=== PATIENT | female | born 1975 | race Hispanic/Latino ===

== ENCOUNTER 2017-01-22 12:30 | Day surgery (SDC) | payer MEDICAID ==
[2017-01-21 08:25] VITALS: BMI 24.4
[2017-01-22 13:09] LABS: BASO # 0.01 K/mm3 (0.0-2.0); BASO % 0.2 % (0.0-3.0); EOS # 0.1 (0.0-0.7); EOS % 2.2 % (1.5-5.0); GRAN # 2.71 (1.4-6.5); GRAN % 54.8 % (50.0-68.0); HEMATOCRIT 35.2 % (36.0-48.0); LYMPH # 1.9 (1.2-3.4); LYMPH % 37.9 % (22.0-35.0); MEAN CELL VOLUME 85.2 fl (80.0-105.0); MEAN CORPUSCULAR HGB CONC 36.4 g/dl (31.0-37.0); MEAN PLATELET VOLUME 8.9 fl (7.0-11.0); MONO # 0.2 (0.1-0.6); MONO % 4.9 % (1.0-6.0); RED CELL DISTRIBUTION WIDTH 12.2 % (11.5-14.5); WHITE BLOOD COUNT 4.9 10^3/ul (4.5-11.0)
[2017-01-22 13:15] LABS: CALCIUM 10.3 mg/dL (8.4-10.5); POTASSIUM 3.8 mmol/L (3.6-5.0)
[2017-01-22 13:21] LABS: INR 1.04 (0.93-1.08); PARTIAL THROMBOPLASTIN TIME 29.7 Seconds (25.1-36.5)
[2017-01-22] MEDS ORDERED: Midazolam 2 MG/2 ML VIAL ONE (14:23)
[2017-01-22] MEDS ORDERED: Oxycodone/Acetaminophen 5/325 mg Tab PO PRN (15:26)
[2017-01-22] MEDS ORDERED: Sodium Chloride 0.45% 1,000 ML IV SCH (15:30)
--- NOTE | 2017-01-22 16:48 | RAD ---
HISTORY: rt liver bx. r/o PTX COMPARISON: No prior. FINDINGS: LUNGS: No active pulmonary disease. PLEURA: No significant pleural effusion identified, no pneumothorax apparent. CARDIOVASCULAR: Normal. OSSEOUS STRUCTURES: No radiographic findings to suggest acute or significant cardiovascular disease. MacrovascularNo significant abnormalities. VISUALIZED UPPER ABDOMEN: Free air under both diaphragms. OTHER FINDINGS: None. IMPRESSION: Status post liver biopsy, free air under both diaphragms identified.
[2017-01-22 18:52] VITALS: RESP 20
--- NOTE | 2017-01-22 20:38 | CT ---
PROCEDURE: CT guided liver biopsy. HISTORY: Ovarian carcinoma. 4 cm peripheral calcified hepatic mass. Evaluate for recurrent disease PHYSICIAN(S): Shadi Ronquillo MD. TECHNIQUE: The relative risks and indications of the procedure were explained to the patient and consent obtained. The patient was placed left decubitus position on the CT scanner and preliminary images through the upper abdomen obtained. Conscious sedation and monitoring were provided throughout the procedure by a nurse. There is an oval 4 cm calcified mass contiguous with the superior aspect the right lobe of the liver.. A right lateral approach was selected and the area prepped and draped in the usual sterile fashion. 1% Xylocaine was used to anesthetize the skin and soft tissues. A 17-gauge guiding needle was advanced into the 4 cm. Hepatic mass. Its position was confirmed with CT. Using coaxial technique, multiple core biopsies were obtained. The postprocedure images show no evidence of significant hemorrhage. Interestingly, there is a small to moderate amount of pneumoperitoneum. The patient was stable without significant pain. She will be observed. IMPRESSION: 1. CT-guided liver biopsy as described above.
[2017-01-23 07:41] LABS: HEMATOCRIT 33.2 % (36.0-48.0); MEAN CELL VOLUME 85.6 fl (80.0-105.0); MEAN CORPUSCULAR HEMOGLOBIN 29.9 pg (25.0-35.0); MEAN CORPUSCULAR HGB CONC 34.9 g/dl (31.0-37.0); MEAN PLATELET VOLUME 9.2 fl (7.0-11.0); RED CELL DISTRIBUTION WIDTH 12.4 % (11.5-14.5); WHITE BLOOD COUNT 3.9 10^3/ul (4.5-11.0)
[2017-01-23 08:02] LABS: BLOOD UREA NITROGEN 25 mg/dL (7-21); CALCIUM 9.8 mg/dL (8.4-10.5); CARBON DIOXIDE 24 mmol/L (21-33); CHLORIDE 107 mmol/L (98-107); GFR AFRICAN-AMERICAN > 60; GLUCOSE,RANDOM 97 mg/dL (70-110); POTASSIUM 3.8 mmol/L (3.6-5.0); SODIUM 140 mmol/L (132-148)
[2017-01-23 08:08] VITALS: BP 95/62; PULSE 73; TEMP 97.8; O2SAT 99
--- NOTE | 2017-01-23 11:24 | RAD ---
HISTORY: fu pneumoperitoneum COMPARISON: 01/22/2017 TECHNIQUE: Chest PA and lateral FINDINGS: LUNGS: No active pulmonary disease. PLEURA: No significant pleural effusion identified. No pneumothorax apparent. CARDIOVASCULAR: Normal. OSSEOUS STRUCTURES: No significant abnormalities. VISUALIZED UPPER ABDOMEN: Pneumoperitoneum is again demonstrated and unchanged. OTHER FINDINGS: None. IMPRESSION: No change in pneumoperitoneum
== END 2017-01-23 13:22 | disposition home or self-care (01) ==
LOC: SDS 12:30 → 3RNO 18:30 → SDS 01-23 13:22
PROVIDERS: ATTEND Radiology Vascular & Interventional Radiology
DX: C78.7 Secondary malignant neoplasm of liver and intrahepatic bile duct (principal); C56.9 Malignant neoplasm of unspecified ovary
CPT/HCPCS: 36415 ×2; 47000; 71010; 71020; 77012; 80048 ×2; 85025; 85027; 85610; 85730; 88307; J2250; J2405; J3010; J7030

== ENCOUNTER 2017-05-21 12:45 | Day surgery (SDC) | payer OTHER, MEDICAID ==
[2017-05-18 12:41] VITALS: BMI 22.7
[2017-05-21 13:14] LABS: BASO # 0.04 K/mm3 (0.0-2.0); BASO % 0.6 % (0.0-3.0); EOS # 0.2 (0.0-0.7); EOS % 2.2 % (1.5-5.0); GRAN # 3.23 (1.4-6.5); GRAN % 44.8 % (50.0-68.0); HEMOGLOBIN 12.5 g/dL (12.0-16.0); LYMPH # 3.4 (1.2-3.4); LYMPH % 46.6 % (22.0-35.0); MEAN CELL VOLUME 85.3 fl (80.0-105.0); MEAN CORPUSCULAR HEMOGLOBIN 29.2 pg (25.0-35.0); MEAN CORPUSCULAR HGB CONC 34.2 g/dl (31.0-37.0); MEAN PLATELET VOLUME 8.9 fl (7.0-11.0); MONO # 0.4 (0.1-0.6); MONO % 5.8 % (1.0-6.0); RBC 4.28 10^6/uL (3.5-6.1); RED CELL DISTRIBUTION WIDTH 15.5 % (11.5-14.5); WHITE BLOOD COUNT 7.2 10^3/ul (4.5-11.0)
[2017-05-21 13:21] LABS: CALCIUM 10.7 mg/dL (8.4-10.5); INR 1.06 (0.93-1.08); PROTHROMBIN TIME 12.2 SECONDS (9.4-12.5)
[2017-05-21 13:22] LABS: PARTIAL THROMBOPLASTIN TIME 29.4 Seconds (25.1-36.5)
[2017-05-21] MEDS ORDERED: Midazolam 2 MG/2 ML VIAL ONE (15:32)
[2017-05-21] MEDS ORDERED: Lidocaine 1% Inj (20ml) ONE (15:33)
[2017-05-21] MEDS ORDERED: Oxycodone/Acetaminophen 5/325 mg Tab PO PRN (16:13)
[2017-05-21] MEDS ORDERED: Sodium Chloride 0.45% 1,000 ML IV SCH (16:15)
--- NOTE | 2017-05-21 17:04 | CT ---
PROCEDURE: CT guided liver biopsy. HISTORY: Metastatic germ cell carcinoma. New liver lesions. Evaluate for recurrence. PHYSICIAN(S): Shadi Ronquillo MD. TECHNIQUE: The relative risks and indications of the procedure were explained to the patient and consent obtained. The patient was placed left decubitus position on the CT scanner and preliminary images through the inferior liver obtained. Conscious sedation and monitoring were provided throughout the procedure by a nurse. There is a lobulated 2 cm low-attenuation mass at the tip of the liver. A right lateral approach was selected and the area prepped and draped in the usual sterile fashion. 1% Xylocaine was used to anesthetize the skin and soft tissues. A 17-gauge guiding needle was advanced into the 2 cm inferior right liver lesion. Its position was confirmed with CT. Using coaxial technique, multiple core biopsies were obtained. The postprocedure images show no evidence of significant hemorrhage. IMPRESSION: 1. CT-guided liver biopsy as described above.
[2017-05-21 17:09] VITALS: TEMP 98
[2017-05-21 17:57] VITALS: BP 108/54; PULSE 71; RESP 20; O2SAT 100
== END 2017-05-21 18:00 | disposition home or self-care (01) ==
LOC: SDS 12:45
PROVIDERS: ATTEND Radiology Vascular & Interventional Radiology
DX: K74.0 Hepatic fibrosis (principal); R16.0 Hepatomegaly, not elsewhere classified
CPT/HCPCS: 36415; 47000; 77012; 80048; 85025; 85610; 85730; 88307; 99152; J2250; J2405; J3010; J7030

== ENCOUNTER 2018-04-13 12:16 | Emergency (ER) | payer OTHER, MEDICAID ==
[2018-04-13 12:16] VITALS: BMI 25.1
--- NOTE | 2018-04-13 13:34 | ED PDOC ---
Arrival/HPI - General Historian: Patient - History of Present Illness Narrative History of Present Illness (Text): 04/13/18 13:24 42F w/ a PMH of R sided ovarian CA s/p Rsided oophrectomy, salpingectomy, hysterectomy presenting w/ complaints of RLQ pain. Patient reported that pain has been worsening over the past 3 days; presented complaints to her heme/onc Dr. Khan who suggested patient go to ED. Patient reported that pain is a sharp sensation which does not radiate into her back or legs. Pain is not worsened/ improved with food; does report some exacerbation of pain w/ bending down. Patient does complain of heartburn. Upon ROS denies any chest pain, sob, palpitations, n/v/d/c, urinary discomfort/ hematuria. Time/Duration: Prior to Arrival, < week Symptom Onset: Gradual Symptom Course: [place], Worsening Quality: Stabbing <Rusty Hernández - Last Filed: 04/13/18 16:40> <Jovany Yuen DO - Last Filed: 04/13/18 21:16> - General Chief Complaint: Abdominal Pain Time Seen by Provider: 04/13/18 13:24 Past Medical History - Provider Review Nursing Documentation Reviewed: Yes - Infectious Disease Hx of Infectious Diseases: None - Tetanus Immunization Tetanus Immunization: Unknown - Cardiac Hx Cardiac Disorders: No - Pulmonary Hx Respiratory Disorders: Yes - Neurological Hx Neurological Disorder: No - HEENT Hx HEENT Disorder: No - Renal Hx Renal Disorder: No - Endocrine/Metabolic Hx Endocrine Disorders: No - Hematological/Oncological Hx Blood Disorders: Yes Hx Blood Transfusions: Yes Hx Blood Transfusion Reaction: No Hx Cancer: Yes - Integumentary Hx Dermatological Disorder: No - Musculoskeletal/Rheumatological Hx Musculoskeletal Disorders: No - Gastrointestinal Hx Gastrointestinal Disorders: No - Genitourinary/Gynecological Hx Genitourinary Disorders: Yes (OOPHORECTOMY /SALPHINGECTOMY.) Hx Ovarian Cancer: Yes - Psychiatric Hx Psychophysiologic Disorder: No Hx Substance Use: No - Surgical History Hx Hysterectomy: Yes Hx Splenectomy: Yes Other/Comment: OVARIAN SURGERY - Anesthesia Hx Anesthesia Reactions: No Hx Malignant Hyperthermia: No - Suicidal Assessment Feels Threatened In Home Enviroment: No <Rusty Hernández - Last Filed: 04/13/18 16:40> Family/Social History - Physician Review Nursing Documentation Reviewed: Yes Family/Social History: Unknown Family HX Smoking Status: Former Smoker Hx Alcohol Use: No Hx Substance Use: No Hx Substance Use Treatment: No <Rusty Hernández - Last Filed: 04/13/18 16:40> Allergies/Home Meds <Rusty Hernández - Last Filed: 04/13/18 16:40> <Jovany Yuen DO - Last Filed: 04/13/18 21:16> Allergies/Adverse Reactions: Allergies No Known Allergies Allergy (Verified 04/13/18 12:45) Home Medications: Home Meds Medication Instructions Recorded Confirmed No Known Home Med 01/21/17 04/13/18 Review of Systems - Review of Systems Constitutional: Normal Eyes: Normal ENT: Normal Respiratory: Normal Cardiovascular: Normal Gastrointestinal: Abdominal Pain (RLQ). absent: Stool Changes, Constipation, Diarrhea, Nausea, Vomiting Genitourinary Female: absent: Dysuria, Frequency, Hematuria, Vaginal Bleeding, Vaginal Discharge Musculoskeletal: Normal Skin: Normal Neurological: Normal Endocrine: Normal Hemo/Lymphatic: Normal Psychiatric: Normal <Rusty Hernández - Last Filed: 04/13/18 16:40> Physical Exam Vital Signs Reviewed: Yes Blood Pressure: Normal Pulse: Regular Respiratory Rate: Normal Appearance: Positive for: Well-Appearing, Non-Toxic, Comfortable Pain Distress: None Mental Status: Positive for: Alert and Oriented X 3 - Systems Exam Head: Present: Atraumatic, Normocephalic Pupils: Present: PERRL Extroacular Muscles: Present: EOMI Conjunctiva: Present: Normal Mouth: Present: Moist Mucous Membranes Neck: Present: Normal Range of Motion Respiratory/Chest: Present: Clear to Auscultation, Good Air Exchange. No: Respiratory Distress, Accessory Muscle Use Cardiovascular: Present: Regular Rate and Rhythm, Normal S1, S2. No: Murmurs Abdomen: Present: Tenderness (LLQ tenderness to palpation), Normal Bowel Sounds, Scars. No: Distention, Peritoneal Signs, Rebound, Guarding Back: Present: Normal Inspection Upper Extremity: Present: Normal Inspection. No: Cyanosis, Edema Lower Extremity: Present: Normal Inspection. No: Edema Neurological: Present: GCS=15, CN II-XII Intact, Speech Normal Skin: Present: Warm, Dry, Normal Color. No: Rashes Psychiatric: Present: Alert, Oriented x 3, Normal Insight, Normal Concentration <Rusty Hernández - Last Filed: 04/13/18 16:40> Vital Signs Pulse Resp BP Pulse Ox 04/13/18 16:10 70 18 99 04/13/18 14:53 77 18 128/69 98 <Jovany Yuen DO - Last Filed: 04/13/18 21:16> Medical Decision Making ED Course and Treatment: 04/13/18 13:40 Impression: 42F w/ a PMH of R ovarian CA s/p R oophrectomy/salpingectomy/hysterectomy + debulking presenting w/ complaints of RLQ pain; noted to have LLQ tenderness on examination Plan: R/o intraabdominal mass CBC/CMP UA CTAP w/ IVCON Progress Note: 04/13/18 16:08 CBC/CMP remarkable only for elevated BUN/Cr - appears chronic UA unremarkable CTAP - constipation w/ minimal free fluid in pelvis No commen tof intraabdominal mass as per radiology report Case d/w Dr. Whitley and Patient both who agree w/ outpatient follow up Will DC patient home w/ appropriate followup - EKG Interpretation EKG Interpretation (Text): 04/13/18 16:11 NSR HR [address]/T wave abnormalities QTc 403 Interpreted by ED Physician: Yes Type: 12 lead EKG <Rusty Hernández - Last Filed: 04/13/18 16:40> - Lab Interpretations Lab Results: Total Bilirubin 0.5 mg/dL (0.2-1.3) 04/13/18 13:54 AST 37 U/L (14-36) H 04/13/18 13:54 ALT 28 U/L (7-56) 04/13/18 13:54 Alkaline Phosphatase 114 U/L (38-126) 04/13/18 13:54 Total Protein 8.6 g/dL (5.8-8.3) H 04/13/18 13:54 Albumin 4.8 g/dL (3.0-4.8) 04/13/18 13:54 Globulin 3.8 gm/dL 04/13/18 13:54 Albumin/Globulin Ratio 1.3 (1.1-1.8) 04/13/18 13:54 Urine Color Straw (YELLOW) 04/13/18 13:50 Urine Appearance Clear (CLEAR) 04/13/18 13:50 Urine pH 6.5 (4.7-8.0) 04/13/18 13:50 Ur Specific [place] 1.010 (1.005-1.035) 04/13/18 13:50 Urine Protein Negative mg/dL (<30 mg/dL) 04/13/18 13:50 Urine Glucose (UA) Negative mg/dL (NEGATIVE) 04/13/18 13:50 Urine Ketones Negative mg/dL (NEGATIVE) 04/13/18 13:50 Urine Blood Negative (NEGATIVE) 04/13/18 13:50 Urine Nitrate Negative (NEGATIVE) 04/13/18 13:50 Urine Bilirubin Negative (NEGATIVE) 04/13/18 13:50 Urine Urobilinogen 0.2 E.U./dL (<1 E.U./dL) 04/13/18 13:50 Ur Leukocyte Esterase Trace Latanya/uL (NEGATIVE) H 04/13/18 13:50 Urine RBC 0 - 2 /hpf (0-2) 04/13/18 13:50 Urine WBC 0 - 2 /hpf (0-6) 04/13/18 13:50 Ur Epithelial Cells 1 - 3 /hpf (0-5) 04/13/18 13:50 Urine Bacteria Trace /hpf (NONE) 04/13/18 13:50 - RAD Interpretation Radiology Orders: 04/13/18 13:37 ABD & PELVIS IV CONTRAST ONLY [CT] Stat - Medication Orders Current Medication Orders: Discontinued Medications Famotidine (Pepcid) 20 mg PO STAT STA Stop: 04/13/18 13:38 Last Admin: 04/13/18 14:24 Dose: 20 mg <Jovany Yuen DO - Last Filed: 04/13/18 21:16> - PA / FREIGHT DISPATCHER / Resident Statement WARREN has reviewed & agrees with the documentation as recorded. WARREN has examined the patient and agrees with the treatment plan. <Jovany Yuen DO - Last Filed: 04/13/18 21:16> Disposition/Present on Arrival - Present on Arrival Any Indicators Present on Arrival: No History of DVT/PE: No History of Uncontrolled Diabetes: No Urinary Catheter: No History of Decub. Ulcer: No History Surgical Site Infection Following: None - Disposition Have Diagnosis and Disposition been Completed?: Yes Disposition Time: 16:13 Patient Plan: Discharge <Rusty Hernández - Last Filed: 04/13/18 16:40> - Disposition Disposition Time: 15:45 <Alpa FORTEJovany - Last Filed: 04/13/18 21:16> - Disposition Diagnosis: Constipation, Abdominal pain Disposition: HOME/ ROUTINE Condition: GOOD Discharge Instructions (ExitCare): Constipation, Adult (DC) Additional Instructions: SARA GU, thank you for letting us take care of you today. Your provider was Jovany Yuen DO and you were treated for abdominal pain. The emergency medical care you received today was directed at your acute symptoms. If you were prescribed any medication, please fill it and take as directed. It may take several days for your symptoms to resolve. Return to the Emergency Department if your symptoms worsen, do not improve, or if you have any other problems. Please contact your doctor or call one of the physicians/clinics you have been referred to that are listed on the Patient Visit Information form that is included in your discharge packet. Bring any paperwork you were given at discharge with you along with any medications you are taking to your follow up visit. Our treatment cannot replace ongoing medical care by a primary care provider outside of the emergency department. Thank you for allowing the [facility] team to be part of your care today. Follow up with Dr. Whitley as scheduled for re-evaluation and further management. Referrals: Ghazala Whitley MD [Staff Provider] - Follow up with primary Forms: [employer] (Ch[place]an)
[2018-04-13 14:04] LABS: PH,URINE 6.5 (4.7-8.0); URINE BILIRUBIN NEGATIVE (NEGATIVE); URINE BLOOD NEGATIVE (NEGATIVE); URINE GLUCOSE (UA) NEGATIVE (NEGATIVE); URINE LEUKOCYTE ESTERASE TRACE Leu/uL (NEGATIVE); URINE PROTEIN NEGATIVE mg/dL (<30 mg/dL); URINE UROBILINOGEN 0.2 E.U./dL (<1 E.U./dL)
[2018-04-13 14:06] LABS: URINE APPEARANCE CLEAR (CLEAR); URINE COLOR STRAW (YELLOW)
[2018-04-13 14:08] LABS: BASO # 0.03 K/mm3 (0.0-2.0); BASO % 0.4 % (0.0-3.0); EOS # 0.1 (0.0-0.7); EOS % 1.1 % (1.5-5.0); HEMOGLOBIN 12.6 g/dL (12.0-16.0); LYMPH # 2.8 (1.2-3.4); LYMPH % 34.8 % (22.0-35.0); MEAN CELL VOLUME 90.1 fl (80.0-105.0); MEAN CORPUSCULAR HEMOGLOBIN 30.4 pg (25.0-35.0); MEAN CORPUSCULAR HGB CONC 33.7 g/dl (31.0-37.0); MEAN PLATELET VOLUME 9.3 fl (7.0-11.0); MONO # 0.5 (0.1-0.6); MONO % 5.8 % (1.0-6.0); RBC 4.15 10^6/uL (3.5-6.1); RED CELL DISTRIBUTION WIDTH 13.2 % (11.5-14.5); WHITE BLOOD COUNT 7.9 10^3/uL (4.5-11.0)
[2018-04-13 14:14] LABS: URINE BACTERIA TRACE /hpf; URINE RBC 0 - 2 /hpf (0-2); URINE WBC 0 - 2 /hpf (0-6)
[2018-04-13 14:17] LABS: ALB/GLOB RATIO 1.3 (1.1-1.8); ALBUMIN 4.8 g/dL (3.0-4.8); CALCIUM 10.7 mg/dL (8.4-10.5)
[2018-04-13] MEDS ORDERED: Iohexol 350 MG/100 ML VIAL ONE (14:21)
[2018-04-13 14:54] VITALS: BP 128/69; RESP 18
--- NOTE | 2018-04-13 15:30 | CT ---
Date of service: 04/13/2018 PROCEDURE: CT Abdomen and Pelvis with contrast HISTORY: RLQ /LLQ pain s/p Ovarian CA; R/o mass COMPARISON: None. TECHNIQUE: Contrast dose: 100 cc of Omni 350 Radiation dose: Total exam DLP = 415.99 mGy-cm. This CT exam was performed using one or more of the following dose reduction techniques: Automated exposure control, adjustment of the mA and/or kV according to patient size, and/or use of iterative reconstruction technique. FINDINGS: LOWER THORAX: Unremarkable. LIVER: Unremarkable. No gross lesion or ductal dilatation. GALLBLADDER AND BILE DUCTS: Unremarkable. PANCREAS: Unremarkable. No gross lesion or ductal dilatation. SPLEEN: Unremarkable. ADRENALS: Unremarkable. No mass. KIDNEYS AND URETERS: Unremarkable. No hydronephrosis. No solid mass. VASCULATURE: Unremarkable. No aortic aneurysm. No aortic atherosclerotic calcification or mural plaque present. BOWEL: Unremarkable. No obstruction. No gross mural thickening. Moderate constipation APPENDIX: Normal appendix. PERITONEUM: Minimal free fluid in the pelvis LYMPH NODES: Unremarkable. No enlarged lymph nodes. BLADDER: Unremarkable. REPRODUCTIVE: Previous hysterectomy and oophorectomy. BONES: No acute fracture. OTHER FINDINGS: None. IMPRESSION: Constipation. Minimal free fluid in the pelvis. Significance uncertain The study is otherwise unremarkable
[2018-04-13 16:11] VITALS: PULSE 70; O2SAT 99
--- NOTE | 2018-04-13 22:59 | CARD ---
APPROVED REPORT Date of service: 04/13/2018 EKG Measurement Heart [id number] <Conclusion> Normal sinus rhythm Normal ECG
== END 2018-04-13 16:10 | disposition home or self-care (01) ==
LOC: ED 12:16
DX: R10.9 Unspecified abdominal pain (principal); K59.00 Constipation, unspecified; Z85.43 Personal history of malignant neoplasm of ovary; Z90.710 Acquired absence of both cervix and uterus; Z87.891 Personal history of nicotine dependence
CPT/HCPCS: 74177; 80053; 81001; 81025; 85025; 87086; 93005; 99284; Q9967

== ENCOUNTER 2018-05-06 23:28 | Emergency (ER) | payer OTHER, MEDICAID ==
[2018-05-07 00:06] VITALS: BMI 25.7
[2018-05-07 00:17] VITALS: BP 107/69; PULSE 80; RESP 16; TEMP 97.3; O2SAT 99
--- NOTE | 2018-05-07 00:46 | ED PDOC ---
Arrival/HPI <Den Mcmullen - Last Filed: 05/07/18 02:41> - General Historian: Patient - History of Present Illness Narrative History of Present Illness (Text): 05/07/18 01:51 42 y/o female with no significant PMH presents to the Emergency department c/o right foot pain s/p injury 1 hour [employer]. Pt was walking down stairs when she tripped and hit her right toes on multiple steps causing immediate pain and bruising to dorsal digits. Denies numbness, weakness, paresthesias, open wounds, or pain elsewhere. <Teri Oviedo - Last Filed: 05/11/18 11:49> - General Chief Complaint: Trauma Time Seen by Provider: 05/06/18 23:37 Past Medical History - Provider Review Nursing Documentation Reviewed: Yes - Infectious Disease Hx of Infectious Diseases: None - Tetanus Immunization Tetanus Immunization: Unknown - Cardiac Hx Cardiac Disorders: No - Pulmonary Hx Respiratory Disorders: Yes - Neurological Hx Neurological Disorder: No - HEENT Hx HEENT Disorder: No - Renal Hx Renal Disorder: No - Endocrine/Metabolic Hx Endocrine Disorders: No - Hematological/Oncological Hx Blood Disorders: Yes Hx Blood Transfusions: Yes Hx Blood Transfusion Reaction: No Hx Cancer: Yes - Integumentary Hx Dermatological Disorder: No - Musculoskeletal/Rheumatological Hx Musculoskeletal Disorders: No - Gastrointestinal Hx Gastrointestinal Disorders: No - Genitourinary/Gynecological Hx Genitourinary Disorders: Yes (OOPHORECTOMY /SALPHINGECTOMY.) Hx Ovarian Cancer: Yes - Psychiatric Hx Psychophysiologic Disorder: No Hx Substance Use: No - Surgical History Hx Hysterectomy: Yes Hx Splenectomy: Yes Other/Comment: OVARIAN SURGERY - Anesthesia Hx Anesthesia: Yes Hx Anesthesia Reactions: No Hx Malignant Hyperthermia: No - Suicidal Assessment Feels Threatened In Home Enviroment: No <Teri Oviedo - Last Filed: 05/11/18 11:49> Family/Social History - Physician Review Nursing Documentation Reviewed: Yes Family/Social History: No Known Family HX Smoking Status: Former Smoker Hx Alcohol Use: No Hx Substance Use: No Hx Substance Use Treatment: No <Teri Oviedo - Last Filed: 05/11/18 11:49> Allergies/Home Meds <Den Mcmullen - Last Filed: 05/07/18 02:41> <Teri Oviedo - Last Filed: 05/11/18 11:49> Allergies/Adverse Reactions: Allergies No Known Allergies Allergy (Verified 05/07/18 00:06) Review of Systems - Review of Systems Respiratory: Normal. absent: SOB, Cough Cardiovascular: Normal. absent: Chest Pain, Palpitations Gastrointestinal: Normal. absent: Abdominal Pain, Nausea, Vomiting Musculoskeletal: Other (right foot pain) Skin: Other (bruising) Neurological: Normal. absent: Headache, Dizziness <Teri Oviedo - Last Filed: 05/11/18 11:49> Physical Exam Vital Signs Temp Pulse Resp BP Pulse Ox 05/07/18 00:15 97.3 F L 80 16 107/69 99 <Den Mcmullen - Last Filed: 05/07/18 02:41> Vital Signs Reviewed: Yes Vital Signs Temp Pulse Resp BP Pulse Ox 05/07/18 00:15 97.3 F L 80 16 107/69 99 Temperature: Afebrile Blood Pressure: Normal Pulse: Regular Respiratory Rate: Normal Appearance: Positive for: Well-Appearing, Non-Toxic, Comfortable Pain Distress: None Mental Status: Positive for: Alert and Oriented X 3 - Systems Exam Head: Present: Atraumatic, Normocephalic Pupils: Present: PERRL Extroacular Muscles: Present: EOMI Conjunctiva: Present: Normal Mouth: Present: Moist Mucous Membranes Neck: Present: Normal Range of Motion Respiratory/Chest: Present: Clear to Auscultation Cardiovascular: Present: Regular Rate and Rhythm Abdomen: Present: Normal Bowel Sounds. No: Tenderness Upper Extremity: Present: Normal Inspection, Normal ROM, Neurovascularly Intact Lower Extremity: Present: NORMAL PULSES, Normal ROM, Tenderness (right foot dorsal digits 2-4), Neurovascularly Intact, Capillary Refill < 2 s, Other (bruising over dorsal 2nd and 3rd digits right foot). No: Deformity, Temperature Abnormalties Neurological: Present: GCS=15, Speech Normal Skin: Present: Warm, Dry Psychiatric: Present: Alert, Oriented x 3 <Teri Oviedo - Last Filed: 05/11/18 11:49> Medical Decision Making - RAD Interpretation Radiology Orders: 05/07/18 00:44 FOOT RIGHT 3 VIEWS ROUTINE [RAD] Stat - Medication Orders Current Medication Orders: Discontinued Medications Ibuprofen (Motrin Tab) 600 mg PO STAT STA Stop: 05/07/18 00:46 <KemiDen - Last Filed: 05/07/18 02:41> ED Course and Treatment: 05/07/18 02:01 Initial Plan: * Right Foot XR * Ibuprofen Right foot XR read as negative for fracture, read by me. Placed in surgical shoe by nursing and provided crutches. Crutch training performed by nursing. Pt able to demonstrate appropriate and safe crutch use prior to discharge. Advised podiatry followup. Diagnostic testing results and plan of care discussed with patient. Strict instructions given regarding prescription use, importance of followup, and signs/symptoms to return to ER including numbness, paresthesias, weakness, or any other new/worsening symptoms. Pt verbalized understanding of discussion. Patient is A&Ox3 with vital signs stable for discharge. - Transfer of Care Patient signed out to Dr:: Kemi Pending Radiology Studies:: Right foot XR Other: Reassessment and Disposition <Teri Oviedo - Last Filed: 05/11/18 11:49> - PA / RADIO REPAIRER DOMESTIC / Resident Statement WARREN has reviewed & agrees with the documentation as recorded. WARREN has examined the patient and agrees with the treatment plan. <Den Mcmullen - Last Filed: 05/07/18 02:41> Disposition/Present on Arrival <Den Mcmullen - Last Filed: 05/07/18 02:41> - Present on Arrival Any Indicators Present on Arrival: No History of DVT/PE: No History of Uncontrolled Diabetes: No Urinary Catheter: No History of Decub. Ulcer: No History Surgical Site Infection Following: None - Disposition Have Diagnosis and Disposition been Completed?: Yes Disposition Time: 04:00 <Teri Oviedo - Last Filed: 05/11/18 11:49> - Disposition Diagnosis: Toe sprain Disposition: HOME/ ROUTINE Condition: IMPROVED Discharge Instructions (ExitCare): Toe Injury (DC) Additional Instructions: Ibuprofen as needed for pain Surgical shoe while walking Use crutches to move around Followup with podiatry within 2 days Return to ER with any new/worsening symptoms Prescriptions: Ibuprofen [Motrin Tab] 600 mg PO Q8 #30 tab Referrals: Podiatry Clinic [Outside] - Follow up with primary Forms: [employer] (I[place]ic), WORK NOTE
--- NOTE | 2018-05-07 08:47 | RAD ---
Date of service: 05/07/2018 PROCEDURE: Right Foot Radiographs. HISTORY: 2-4th toe pain COMPARISON: None. TECHNIQUE: 3 views obtained. FINDINGS: BONES: Normal. No fracture. JOINTS: Normal. SOFT TISSUES: Normal. OTHER FINDINGS: None. IMPRESSION: Normal right foot radiographs.
== END 2018-05-07 05:36 | disposition home or self-care (01) ==
LOC: ED 23:28
DX: S93.504A Unspecified sprain of right lesser toe(s), initial encounter (principal); W10.9XXA Fall (on) (from) unspecified stairs and steps, initial encounter